=== PATIENT | male | born 1995 | race Two or more races ===

== ENCOUNTER 2018-08-31 20:59 | Emergency (ER) | payer MEDICAID ==
[~2018-08-31] VITALS: Ht 177.8 cm; Wt 84.1 kg
[~2018-08-31 20:59] MED LIST: CLIN-26 PO; CYCL-1 PO; META800T87 PO; NO HOME MEDS
[2018-08-31 21:11] VITALS: BP 108/43
[2018-08-31] MEDS ORDERED: CEPH500C5 PO (21:54)
== END 2018-08-31 22:05 | disposition home or self-care (01) ==
LOC: ER 20:59
DX: L03.115 Cellulitis of right lower limb (principal); J45.909 Unspecified asthma, uncomplicated; F10.99 Alcohol use, unspecified with unspecified alcohol-induced disorder; Z79.899 Other long term (current) drug therapy; Y90.9 Presence of alcohol in blood, level not specified
CPT/HCPCS: 73620; 99284

== ENCOUNTER 2020-01-09 10:26 | Emergency (ER) | payer MEDICAID ==
[~2020-01-09] VITALS: Ht 177.8 cm; Wt 95.0 kg
[2020-01-09 10:41] VITALS: BP 117/96
== END 2020-01-09 13:54 | disposition home or self-care (01) ==
LOC: ER 10:26
DX: R05 Cough (principal); Z20.828 Contact with and (suspected) exposure to other viral communicable diseases; R07.89 Other chest pain; F17.200 Nicotine dependence, unspecified, uncomplicated; J45.909 Unspecified asthma, uncomplicated; Z79.2 Long term (current) use of antibiotics; Z79.899 Other long term (current) drug therapy
CPT/HCPCS: 36415; 87635; 99283

== ENCOUNTER 2023-05-09 21:30 | Emergency (ER) | payer MEDICAID, OTHER ==
[~2023-05-09] VITALS: Ht 177.8 cm; Wt 100.5 kg
[2023-05-09 21:31] VITALS: BP 116/60; PULSE 86; RESP 16; TEMP 98.6; O2SAT 98
== END 2023-05-10 02:03 | disposition left against medical advice (07) ==
LOC: ER 21:31
DX: M79.641 Pain in right hand (principal); R22.31 Localized swelling, mass and lump, right upper limb; Z53.21 Procedure and treatment not carried out due to patient leaving prior to being seen by health care provider
CPT/HCPCS: 73130; 99281

== ENCOUNTER 2023-05-10 08:04 | Emergency (ER) | payer OTHER ==
[~2023-05-10] VITALS: Ht 177.8 cm; Wt 100.2 kg
[2023-05-10 08:08] VITALS: BP 127/45; PULSE 64; RESP 16; TEMP 98; O2SAT 98
== END 2023-05-10 12:13 | disposition home or self-care (01) ==
LOC: ER 08:05
DX: S92.341A Displaced fracture of fourth metatarsal bone, right foot, initial encounter for closed fracture (principal); J45.909 Unspecified asthma, uncomplicated; Z72.89 Other problems related to lifestyle; Z79.2 Long term (current) use of antibiotics; W22.8XXA Striking against or struck by other objects, initial encounter; Z79.899 Other long term (current) drug therapy; Y93.89 Activity, other specified; Y92.89 Other specified places as the place of occurrence of the external cause; Y99.8 Other external cause status
CPT/HCPCS: 29125; 99283

== ENCOUNTER 2024-01-31 16:21 | Emergency (ER) | payer OTHER ==
[~2024-01-31] VITALS: Ht 177.8 cm; Wt 97.7 kg
[2024-01-31] MEDS: ketorolac trometh 30MG/ML vial 30 MG/ML VIAL IM ONE (17:58)
[2024-01-31] MEDS: LIDOcaine 5% patch TP SCH (17:59)
[2024-01-31] MEDS ORDERED: LIDO700A32 TOP (17:59)
[2024-01-31 18:25] VITALS: BP 127/62; PULSE 65; RESP 16; TEMP 98.5; O2SAT 98
== END 2024-01-31 18:26 | disposition home or self-care (01) ==
LOC: ER 16:23
DX: M54.6 Pain in thoracic spine (principal); J45.909 Unspecified asthma, uncomplicated; Z79.2 Long term (current) use of antibiotics; Z79.899 Other long term (current) drug therapy; V43.52XA Car driver injured in collision with other type car in traffic accident, initial encounter; Y93.89 Activity, other specified; Y92.89 Other specified places as the place of occurrence of the external cause; Y99.8 Other external cause status
CPT/HCPCS: 72070; 96372; 99283; J1885